=== PATIENT | female | born 1980 | race Caucasian/White ===

== ENCOUNTER 2016-06-22 23:39 | Observation (INO) ==
[2016-06-23] MEDS ORDERED: Ketorolac 30 MG/ML VIAL IVP ONE ×2 (00:10→08:59)
--- NOTE | 2016-06-23 00:14 | Emergency Department Note ---
Disposition Clinical Impression: Cholecystitis, Biliary colic Disposition: Admitted As Inpatient Condition: Good Time of Disposition: 05:05 Abdominal Pain HPI - General Chief Complaint: ED Abdominal Pain Stated Complaint: abdominal pain has gallstones Time Seen by Provider: 06/22/16 23:59 Source: patient Mode of arrival: ambulatory Limitations: no limitations Nursing Notes Reviewed: Yes Vital Signs Reviewed: Yes - History of Present Illness HPI Narrative: 36-year-old female history of COPD presents to the ED with abdominal pain. Patient reports a history of gallbladder issues over the past year. She just recently got out of correction and is currently at the [facility]. She reports pain in the epigastric region mostly in the right upper quadrant that has been ongoing since yesterday. Worse with foods in particular fatty food and chicken. She attempted take Pepcid without much relief. She feels bloated and states are abdomen is larger than usual. Denies any fevers, cough, chest pain, shortness of breath. Denies any urinary complaints, diarrhea, bloody stools. History of tubal ligation denies any other abdominal surgeries. Pain Scale: 9 - Related Data Previous Rx's Medication Instructions Recorded Amoxicillin/Clavulanate [Augmentin] 875 mg PO BIDWM #20 tablet 11/11/15 PredniSONE [Prednisone] 50 mg PO DAILY #7 tablet 11/11/15 Cephalexin [Keflex] 500 mg PO QID #40 capsule 01/07/16 DiphenhydraMINE [Benadryl] 50 mg PO HS #60 capsule 04/05/16 Famotidine [Pepcid] 20 mg PO BID #60 tablet 04/05/16 Ibuprofen [Motrin] 600 mg PO Q6HR PRN #30 tab 04/05/16 Allergies Allergy/AdvReac Type Severity Reaction Status Date / Time No Known Allergies Allergy Verified 06/22/16 23:53 All systems ED: reviewed and negative except as stated. Constitutional: Denies: fever, chills Cardiovascular: Denies: chest pain Respiratory: Denies: cough, dyspnea Gastrointestinal: Reports: abdominal pain. Denies: nausea, vomiting, diarrhea, melena, hematochezia Genitourinary: Denies: urgency, dysuria, frequency Musculoskeletal: Denies: back pain, neck pain Integumentary: Denies: rash, abrasion Abdominal Pain PMH - Past Medical History Medical history: Reports: asthma, COPD [employer]GR[employer] DIRECTOR history: Reports: bilateral tubal ligation Psychiatric history: Reports: anxiety, depression, panic disorder - Social History Smoking status: Current every day smoker Alcohol use: Reports: none Drug use: Reports: none Physical Exam - General Limitations: no limitations General appearance: alert, in no apparent distress, obese - Head Head exam: atraumatic, normocephalic, normal inspection - Eye Eye exam: Present: normal appearance, PERRL, EOMI - ENT ENT exam: normal exam, normal oropharynx, mucous membranes moist - Neck Neck exam: Present: normal inspection, full ROM, trachea midline. Absent: tenderness - Chest Chest inspection: Present: normal inspection, symmetric chest wall rise. Absent : tenderness - Respiratory Respiratory exam: Present: normal lung sounds bilaterally. Absent: respiratory distress, wheezes - Cardiovascular Cardiovascular exam: Present: regular rate, normal rhythm, normal heart sounds. Absent: systolic murmur, diastolic murmur - Abdominal Exam Abdominal exam: Present: soft, tenderness, normal bowel sounds, Howard's sign. Absent: distention, guarding, rebound, rigidity, Rovsing's sign, tenderness at McBur[place]'s Point, ascites, hernia, scar Abdominal tenderness: Present: RUQ, epigastrium, moderate - Extremities Exam Extremities exam: Present: normal inspection, full ROM, normal capillary refill. Absent: tenderness, pedal edema, calf tenderness - Back Exam Back exam: Present: normal inspection, full ROM. Absent: tenderness, CVA tenderness (R), CVA tenderness (L) - Neurological Exam Neurological exam: Present: alert, oriented X3 - Psychiatric Psychiatric exam: Present: normal affect, normal mood - Skin Skin exam: Present: warm, dry, intact, normal color. Absent: rash, cyanosis Course Course Narrative: 36-year-old female presents with right upper quadrant pain. His been ongoing for the past 24 hours. She believes it is worse with meals. History of gallbladder issues in the past. Denies any nausea, vomiting, urinary symptoms. Patients afebrile peers in no acute distress. Lungs are clear auscultation bilaterally. Abdomen is soft but tender in the right upper quadrant and epigastric region. Positive Howard sign. Toradol for pain. We will get CBC, CMP and consider possible ultrasound versus CT scan pending lab results. Urinalysis ordered. - Reevaluation(s) Reevaluation #1: Lipase elevated 99. CT of the abdomen and pelvis was ordered and reveals multiple gallstones and gallbladder wall thickening. Suggestive of possible cholecystitis. Recommend ultrasound. Patient has been NPO since 1700. Bedside ultrasound of gallbladder reveals multiple gallstones with gallbladder wall thickening 3.6 mm. Awaiting for formal ultrasound of gallblader. Pain improved with toradol, however, worsening again. Morphine 4 mg ordered for additional relief. Time: 03:17 Reevaluation #2: Gallbladder ultrasound reveals immobile stone at the gallbladder neck. There is some mucosal thickening but no pericholecystic fluid. Mild intrahepatic biliary ductal dilatiation with slight prominence of CBD. Consult surgeon on- call for symptom management. She is from the [facility] and concern for outpatient follow up. Concerning for possible cholecystitis. Impression is biliary colic and cholecystitis. Morphine for pain control. Zosyn antibiotic ordered. Abdomen/Pelvis CT 06/23/16 00:48 IMPRESSION: 1. Cholelithiasis with gallbladder mucosal thickening and mild intrahepatic biliary ductal dilatation. Pattern may represent chronic cholecystitis. Please correlate with any acute symptoms of cholecystitis. Follow-up ultrasound may be considered if indicated. 2. No other significant findings in the abdomen or pelvis. D/ / Williams Gonsales MD / Williams Gonsales MD Interpreting Provider: Williams Gonsales MD Gallbladder Ultrasound 06/23/16 01:37 IMPRESSION: 1. Ultrasound findings demonstrate an immobile stone at the gallbladder neck. Mild mucosal thickening with no pericholecystic fluid. Pattern may represent uncomplicated cholecystitis and correlation clinically is advised. 2. There is mild intrahepatic biliary ductal dilatation. Slight prominence of the common bile duct. D/ / Williams Gonsales MD / Williams Gonsales MD Interpreting Provider: Williams Gonsales MD Time: 05:04 - Consultations Consultation #1: Spoke with on-call surgeon edis Johnson to admit for acute symptoms of bilary colic and chronic cholecystitis. No further orders at this time. Time: 05:03 Vital Signs Temperature 97.6 F 06/22/16 23:50 Pulse Rate 88 06/22/16 23:50 Respiratory Rate 20 06/22/16 23:50 Blood Pressure 156/108 06/22/16 23:50 O2 Sat by Pulse Oximetry 98 06/22/16 23:50 Temperature 97.6 F 06/22/16 23:50 Pulse Rate 67 06/23/16 04:47 Respiratory Rate 16 06/23/16 04:47 Blood Pressure 117/81 06/23/16 04:47 O2 Sat by Pulse Oximetry 97 06/23/16 04:47 Oxygen Delivery Oxygen Delivery Room Air Abdominal Pain - Medical Records Medical records reviewed: Yes I reviewed the patient's medical records. - Lab Data Lab results reviewed: Yes I reviewed the patient's lab results. Result diagrams: 06/23/16 00:21 06/23/16 00:21 Lab Results 06/23/16 06/23/16 06/23/16 Range/Units 00:01 00:02 00:21 WBC 9.3 (4.3-11.1) K/mcL RBC 4.91 (3.82-4.97) M/mcL Hgb 14.8 (11.5-15.4) g/dL Hct 44.2 (35.3-44.9) % MCV 90.0 (83.0-100.0) fL MCH 30.1 (28.0-33.3) pg MCHC 33.5 (31.6-35.5) g/dL RDW 12.1 (11.5-14.5) % Plt Count 298 (140-400) K/mcL MPV 8.6 L (9.4-12.4) fL Immature Gran % 0.2 (0-4) % Seg Neutrophils % 44.6 % Lymphocytes % 47.8 % Monocytes % 5.9 % Eosinophils % 1.3 % Basophils % 0.2 % Neutrophils # 4.1 (1.6-8.9) K/mcL Lymphocytes # 4.4 (0.6-4.6) K/mcL Monocytes # 0.6 (0.0-1.3) K/mcL Eosinophils # 0.1 (0.0-0.6) K/mcL Basophils # 0.0 (0.0-0.2) K/mcL Sodium (136-145) mEq/L Potassium (3.5-4.5) mEq/L Chloride (98-109) mEq/L Carbon Dioxide (19-29) mEq/L BUN (7-20) mg/dL Creatinine (0.57-1.11) mg/dL Est GFR ( Amer) (> 60) Est GFR (Non-Af Amer) (> 60) BUN/Creatinine Ratio (6-26) Glucose (70-99) mg/dL Calculated Osmolality (280-300) Calcium (8.6-10.8) mg/dL Total Bilirubin (0.2-1.2) mg/dL Direct Bilirubin (0.0-0.5) mg/dL Indirect Bilirubin (0.0-1.2) mg/dL AST (5-34) Units/L ALT (0-55) Units/L Alkaline Phosphatase (38-126) Units/L Serum Total Protein (6.0-8.3) g/dL Albumin (3.5-5.0) g/dL Globulin (2.4-3.5) g/dL Albumin/Globulin Ratio (1.1-2.2) Lipase (8-78) Units/L Urine Color Yellow (Yellow) Urine Clarity Clear (Clear) Urine pH 6.5 (5.0-8.0) pH Units Ur Specific [place] 1.026 H (1.010-1.025) Urine Protein Negative (Neg-Trace) mg/dL Urine Glucose (UA) Normal (Normal) mg/dL Urine Ketones Negative (Negative) mg/dL Urine Blood Negative (Negative) Urine Nitrite Negative (Negative) Urine Bilirubin Negative (Negative) Urine Urobilinogen Normal (Normal) mg/dL Ur Leukocyte Esterase Small H (Negative) Urine Microscopic RBC 0-3 (0-3) per hpf Urine Microscopic WBC 0-3 (0-3) per hpf Ur Squamous Epith Cells Many H (None-Few) per lpf Urine Bacteria Few (None-Few) per hpf Hyaline Casts None Seen (None-Few) per lpf Ur Culture Indicated? YES A (NO) Urine Test Negative (Negative) 06/23/16 Range/Units 00:21 WBC (4.3-11.1) K/mcL RBC (3.82-4.97) M/mcL Hgb (11.5-15.4) g/dL Hct (35.3-44.9) % MCV (83.0-100.0) fL MCH (28.0-33.3) pg MCHC (31.6-35.5) g/dL RDW (11.5-14.5) % Plt Count (140-400) K/mcL MPV (9.4-12.4) fL Immature Gran % (0-4) % Seg Neutrophils % % Lymphocytes % % Monocytes % % Eosinophils % % Basophils % % Neutrophils # (1.6-8.9) K/mcL Lymphocytes # (0.6-4.6) K/mcL Monocytes # (0.0-1.3) K/mcL Eosinophils # (0.0-0.6) K/mcL Basophils # (0.0-0.2) K/mcL Sodium 138 (136-145) mEq/L Potassium 3.7 (3.5-4.5) mEq/L Chloride 103 (98-109) mEq/L Carbon Dioxide 26 (19-29) mEq/L BUN 10 (7-20) mg/dL Creatinine 0.78 (0.57-1.11) mg/dL Est GFR ( Amer) > 60 (> 60) Est GFR (Non-Af Amer) > 60 (> 60) BUN/Creatinine Ratio 13 (6-26) Glucose 96 (70-99) mg/dL Calculated Osmolality 285 (280-300) Calcium 10.6 (8.6-10.8) mg/dL Total Bilirubin 0.3 (0.2-1.2) mg/dL Direct Bilirubin 0.2 (0.0-0.5) mg/dL Indirect Bilirubin 0.1 (0.0-1.2) mg/dL AST 62 H (5-34) Units/L ALT 50 (0-55) Units/L Alkaline Phosphatase 70 (38-126) Units/L Serum Total Protein 9.0 H (6.0-8.3) g/dL Albumin 4.1 (3.5-5.0) g/dL Globulin 4.9 H (2.4-3.5) g/dL Albumin/Globulin Ratio 0.8 L (1.1-2.2) Lipase 99 H (8-78) Units/L Urine Color (Yellow) Urine Clarity (Clear) Urine pH (5.0-8.0) pH Units Ur Specific [place] (1.010-1.025) Urine Protein (Neg-Trace) mg/dL Urine Glucose (UA) (Normal) mg/dL Urine Ketones (Negative) mg/dL Urine Blood (Negative) Urine Nitrite (Negative) Urine Bilirubin (Negative) Urine Urobilinogen (Normal) mg/dL Ur Leukocyte Esterase (Negative) Urine Microscopic RBC (0-3) per hpf Urine Microscopic WBC (0-3) per hpf Ur Squamous Epith Cells (None-Few) per lpf Urine Bacteria (None-Few) per hpf Hyaline Casts (None-Few) per lpf Ur Culture Indicated? (NO) Urine Test (Negative) - Radiology Data Radiology results reviewed: Yes I reviewed the patient's radiology results. Abdomen/Pelvis CT 06/23/16 00:48 IMPRESSION: 1. Cholelithiasis with gallbladder mucosal thickening and mild intrahepatic biliary ductal dilatation. Pattern may represent chronic cholecystitis. Please correlate with any acute symptoms of cholecystitis. Follow-up ultrasound may be considered if indicated. 2. No other significant findings in the abdomen or pelvis. D/ / Williams Gonsales MD / Williams Gonsales MD Interpreting Provider: Williams Gonsales MD Abdomen/Pelvis CT 06/23/16 00:48 IMPRESSION: 1. Cholelithiasis with gallbladder mucosal thickening and mild intrahepatic biliary ductal dilatation. Pattern may represent chronic cholecystitis. Please correlate with any acute symptoms of cholecystitis. Follow-up ultrasound may be considered if indicated. 2. No other significant findings in the abdomen or pelvis. D/ / Williams Gonsales MD / Williams Gonsales MD Interpreting Provider: Williams Gonsales MD Gallbladder Ultrasound 06/23/16 01:37 IMPRESSION: 1. Ultrasound findings demonstrate an immobile stone at the gallbladder neck. Mild mucosal thickening with no pericholecystic fluid. Pattern may represent uncomplicated cholecystitis and correlation clinically is advised. 2. There is mild intrahepatic biliary ductal dilatation. Slight prominence of the common bile duct. D/ / Williams Gonsales MD / Williams Gonsales MD Interpreting Provider: Williams Gonsales MD Attestation Statement - Attestation Attestation: I examined this patient and my medical decision-making was reviewed with the LOAD BLOCKER/PA/Advanced Practice Nurse/Resident Physician. I agree with the documented findings, disposition and treatment plan as described except to the extent set forth below. Patient emergency department with upper abdominal pain. Onset yesterday. History of gallstones. States she ate a sandwich. On exam she is uncomfortable. Right upper quadrant tenderness no guarding. Plan. Labs. Pain control and re-eval. CT shows thickening of the gallbladder. Patient having increasing right upper quadrant pain. Ultrasound findings likely chronic cholecystitis. She does have acute findings. Admitted to surgery.
[2016-06-23 00:21] LABS: Bilirubin,Urine Negative (Negative); Blood,Urine Negative (Negative); Color,Urine Yellow (Yellow); Glucose,Urine (UA) Normal (Normal); Ketones,Urine Negative (Negative); Leukocyte Esterase,Urine Small (Negative); Nitrite,Urine Negative (Negative); PH,Urine 6.5 pH Units (5.0-8.0); Protein,Urine Negative (Neg-Trace); Specific Gravity,Urine 1.026 (1.010-1.025); Urobilinogen,Urine Normal (Normal)
[2016-06-23 00:23] LABS: Bacteria,Urine Few per hpf (None-Few); Hyaline Casts,Urine None Seen per lpf (None-Few); RBC,Urine 0-3 per hpf (0-3); Squamous Epithelial Cell,Urine Many per lpf (None-Few); WBC,Urine 0-3 per hpf (0-3)
[2016-06-23 00:25] LABS: Clarity,Urine Clear (Clear)
[2016-06-23 00:31] LABS: Basophils % 0.2 %; Eosinophils # 0.1 K/mcL (0.0-0.6); Eosinophils % 1.3 %; Hematocrit 44.2 % (35.3-44.9); Hemoglobin 14.8 g/dL (11.5-15.4); Immature Granulocytes % 0.2 % (0-4); Lymphocytes # 4.4 K/mcL (0.6-4.6); Lymphocytes % 47.8 %; Mean Corpuscular HGB Conc 33.5 g/dL (31.6-35.5); Mean Corpuscular Hemoglobin 30.1 pg (28.0-33.3); Mean Platelet Volume 8.6 fL (9.4-12.4); Monocytes # 0.6 K/mcL (0.0-1.3); Monocytes % 5.9 %; Neutrophils # 4.1 K/mcL (1.6-8.9); Platelet Count 298 K/mcL (140-400); Red Blood Count 4.91 M/mcL (3.82-4.97); Red Cell Distribution Width 12.1 % (11.5-14.5); Segmented Neutrophils % 44.6 %
[2016-06-23 00:45] LABS: Alanine Aminotransferase 50 Units/L (0-55); Albumin 4.1 g/dL (3.5-5.0); Albumin/Globulin Ratio 0.8 (1.1-2.2); Alkaline Phosphatase 70 Units/L (38-126); Aspartate Amino Transferase 62 Units/L (5-34); BUN/Creatinine Ratio 13 (6-26); Bilirubin,Direct 0.2 mg/dL (0.0-0.5); Bilirubin,Indirect 0.1 mg/dL (0.0-1.2); Bilirubin,Total 0.3 mg/dL (0.2-1.2); Blood Urea Nitrogen 10 mg/dL (7-20); Calcium 10.6 mg/dL (8.6-10.8); Carbon Dioxide 26 mEq/L (19-29); Chloride 103 mEq/L (98-109); Globulin 4.9 g/dL (2.4-3.5); Glucose 96 mg/dL (70-99); Lipase 99 Units/L (8-78); Osmolality,Calculated 285 (280-300); Potassium 3.7 mEq/L (3.5-4.5); Sodium 138 mEq/L (136-145); eGFR For African Americans > 60 (> 60); eGFR For Non-African Americans > 60 (> 60)
[2016-06-23] MEDS ORDERED: 0.9 % Sodium Chloride 1,000 ML IV ONE (00:48)
[2016-06-23] MEDS ORDERED: *HR* Morphine 2 MG/ML SYRINGE IV ONE ×2 (03:17→05:05)
[2016-06-23] MEDS ORDERED: Ondansetron 4 MG/2 ML VIAL IV ONE (05:05)
[2016-06-23] MEDS ORDERED: Piperacillin/Tazobactam 3.375 GM in D5% in Water (Mini-Bag+) 100 ML IVPB ONE (05:20)
[2016-06-23] MEDS ORDERED: Ringers Solution, Lactated 1,000 ML IVC SCH ×3 (08:15→10:15)
--- NOTE | 2016-06-23 08:27 | General Surg History&Physical ---
Date of Encounter: 06/23/16 Time of Encounter: 07:45 History of Present Illness Chief complaint: Acute epigastric and right upper quadrant abdominal pain, cholelithiasis HPI: Ms. Lopez is a 36 year old female referred to surgical services after presenting to the emergency department with approximately a 36 hour history of epigastric and right upper quadrant abdominal pain. The patient describes sudden onset of pain and bloating after the evening meal yesterday. The patient admits that these symptoms have been occurring intermittently, approximately once monthly, for the past year but they have increased in severity and frequency. The patient denies associated fevers, chills, chest pain but with the acute onset of pain and bloating she did describe some difficulty breathing. Labs are notable for normal white count, 9.3, hemoglobin 14.8, hematocrit 44.2. Electrolytes, BUN, and creatinine were within normal limits. CT demonstrated clear lung bases, at least 2 large stones within the gallbladder fundus with a mild degree of gallbladder mucosal thickening and mild intra-hepatic biliary duct dilatation. The common bile duct was described as normal in caliber. The rest of the abd and pelvis were unremarkable. An ultrasound of the gallbladder demonstrated a distended gallbladder with 2 stones within the gallbladder fundus and one described as immobile in the neck of the gallbladder. Gallbladder mucosal thickening approximately 4 mm in diameter is described. No pericholecystic fluid was identified. The common bile duct was slightly prominent 5 mm but this is considered within normal limits. The emergency department physician referred the patient to surgical service due to the radiologic findigns and persisting pain despite administration of meds including morphine. Past medical history: Notable for history of heroin and methadone abuse; the patient was recently released from senior living and is currently a resident of a [facility]. The patient indicates that she has been drug free for over a year. Patient denies any medical history but medical records indicate a previous history of asthma/COPD, anxiety, depression, and panic disorder. Surgical history: Tubal ligation; ORIF right elbow Medications: No routine meds; the patient tried [id number] Pepcid to control her symptoms without success. Allergies: No known drug allergies Social history: G4, P2, Ab2; admits to half a pack of cigarettes daily for the last 10 years; history illicit drug use as noted above. Physical examination: At the time of my examination, the patient was in no acute distress. Skin is warm, without evidence of jaundice. Sclerae are anicteric The patient was afebrile, 98.1; pulse 77, respirations 18, blood pressure 133 /88. SPO2 on room air 96% Lungs: Clear without audible wheezes or rales Cardiac: Regular rate, no appreciable murmurs Abdomen: Obese, soft with minimal tenderness in the right upper quadrant. No discernible intra-abdominal masses. No rebound. Active bowel sounds Extremities: No obvious clubbing cyanosis or edema Laboratories noted CT and ultrasound were personally reviewed Impression: 36-year-old female referred to surgical services for further evaluation and possible treatment recurrent severe epigastric and RUQ abdominal pain. Radiologic findings include cholelithiasis with mild mucosal thickening and intrahepatic ductal dilatation. The patient describes recurrent symptoms dating back at least a year but characterizes the symptoms as becoming more frequent and severe. Treatment options include dietary restriction fried and fatty foods but it is likely the patient will continue to have intermittent recurrent symptoms. The other option is surgery. The patient is a reasonable candidate for laparoscopic cholecystectomy but understands understands an open cholecystectomy may become necessary. Risks of surgery include: Hemorrhage, infection, intra-abdominal abscess, bile leak, injury to adjacent ducts, vessels, organs, or bowel. Potential postcholecystectomy diarrhea was also discussed. The patient expressed understanding and voiced a desire to proceed with surgery. Consent for surgery has been obtained. Past Med Surg Social Fam HX - Past Medical History Medical history: asthma, COPD Psychiatric history: anxiety, depression, panic disorder - Past Surgical History Surgical History: orthopedic, other - Social History Smoking Status: Current every day smoker Smokeless Tobacco Status: No Alcohol use: none Drug use: none - Family History Father Living Status: Still Living Hx Family Cardiac Disorders: Yes Hx Family Respiratory Disorders: No Hx Family Cancer: No Hx Family GI Disorders: No Hx Family Genitourinary Disorders: No Hx Family Endocrine Disorder: No Hx Family Musculoskeletal Disorders: No Hx Family Neuromuscular Disorders: No Hx Family Neurologic Disorders: No Hx Family HEENT Disorders: No Hx Family Autoimmune Disorders: No Hx Family Reproductive Disorders: No Hx Family Psychosocial Disorders: No Hx Family Medical Disorders: No Mother Living Status: Age at : 43 Cause of : CHF Hx Family Cardiac Disorders: Yes Hx Family Respiratory Disorders: No Hx Family Cancer: No Hx Family GI Disorders: No Hx Family Genitourinary Disorders: No Hx Family Endocrine Disorder: No Hx Family Musculoskeletal Disorders: No Hx Family Neuromuscular Disorders: No Hx Family Neurologic Disorders: No Hx Family HEENT Disorders: No Hx Family Autoimmune Disorders: No Hx Family Reproductive Disorders: No Hx Family Psychosocial Disorders: No Hx Family Medical Disorders: No Medications and Allergies No Known Home Drugs 06/23/16 [History] Allergies No Known Allergies Allergy (Verified 06/22/16 23:53) Review of Systems All systems PM: A 10-system review of systems was performed and is negative for pertinent findings except as documented above in the HPI. General Surgery Exam Initial Vital Signs Temp Pulse Resp BP Pulse Ox 97.6 F 88 20 156/108 98 06/22/16 23:50 06/22/16 23:50 06/22/16 23:50 06/22/16 23:50 06/22/16 23:50 Results - Labs 06/23/16 00:21 03 00:21 Abnormal lab results MPV 8.6 fL (9.4-12.4) L 06/23/16 00:21 AST 62 Units/L (5-34) H 06/23/16 00:21 Serum Total Protein 9.0 g/dL (6.0-8.3) H 06/23/16 00:21 Globulin 4.9 g/dL (2.4-3.5) H 06/23/16 00:21 Albumin/Globulin Ratio 0.8 (1.1-2.2) L 06/23/16 00:21 Lipase 99 Units/L (8-78) H 06/23/16 00:21 Ur Specific [place] 1.026 (1.010-1.025) H 06/23/16 00:01 Ur Leukocyte Esterase Small (Negative) H 06/23/16 00:01 Ur Squamous Epith Cells Many per lpf (None-Few) H 06/23/16 00:01 Ur Culture Indicated? YES (NO) A 06/23/16 00:01 All other labs normal.
[2016-06-23] MEDS ORDERED: Albuterol 2.5 MG/3 ML NEBULIZER ONE (08:40)
[2016-06-23] MEDS ORDERED: Albuterol 2.5 MG/3 ML NEBULIZER IH ONE (08:43)
[2016-06-23] MEDS ORDERED: *HR* Rocuronium Bromide 50 MG/5 ML VIAL IVC ONE (08:59)
[2016-06-23] MEDS ORDERED: *HR* Propofol 200 MG/20 ML VIAL IVP ONE (08:59)
[2016-06-23] MEDS ORDERED: Ondansetron 4 MG/2 ML VIAL IVP ONE (08:59)
[2016-06-23] MEDS ORDERED: Lidocaine -MPF 2% 5 ML VIAL INFILT ONE (08:59)
[2016-06-23] MEDS ORDERED: Bupivacaine/EPI 1:200k 0.25%PF 30 ML VIAL ONE (09:11)
[2016-06-23] MEDS ORDERED: *HR* FentaNYL (PF) 250 MCG/5 ML VIAL ONE (09:20)
--- NOTE | 2016-06-23 09:45 | Anesthesia Evaluation PreOp ---
Date of Encounter: 06/23/16 Time of Encounter: 09:39 - Past History Planned Operation: Lap cholecystectomy Cardiac History: Denies any Significant Hx Pulmonary History: Smoker, COPD WORKFORCE PLANNER History: Denies Any Significant HX Other Medical History: Denies Any Significant HX Anesthesia History: No Prior Anesthetic Complications, Past Anesthesia (csection , elbow sx) Alcohol Use: none Drug use: none Medications and Allergies No Known Home Drugs 06/23/16 [History] Allergies No Known Allergies Allergy (Verified 06/22/16 23:53) - Meds/Allergy Pre-op Review Medications Reviewed: Yes Allergies Reviewed: Yes Beta Blockers on Current Med List: No Anesthesia Results - Labs 06/23/16 00:21 06/23/16 00:21 Anesthesia Exam Vital Signs/O2 Sat, Most Current Temp Pulse Resp BP Pulse Ox 98.1 F 77 18 133/88 96 06/23/16 06:00 06/23/16 06:00 06/23/16 06:00 06/23/16 06:00 06/23/16 06:00 Height: 1.6m Weight: 109kg NPO (# of Hours): >8 Pain Scale: 0 Pain Scale Used: Numeric (1 - 10) - HEENT Pupil (Motor): Pupils equal, EOMI Mallampati: II Teeth: Poor dentition Oral Opening: Greater than 3 - WORKFORCE PLANNER LOC: Oriented WORKFORCE [employer]NER Motor: Normal RUE, Normal LUE, Normal RLE, Normal LLE, Normal Face [employer]FORCE PL[employer]NER Sensory: Normal: RUE, LUE, RLE, LLE, Face - Cardiac Rhythm: Regular Murmur: None - Pulmonary Breath Sounds: bilateral Clear Respiratory Effort: Symmetrical Anesthesia Assess/Plan ASA Score: 3 (COPD, smoker) Modified Aranza Scale for Level of Consciousness: Cooperative, oriented, and tranquil Anesthetic Plan: General Monitoring Plan: Standard Monitors Recovery Plan: PACU
[2016-06-23] MEDS ORDERED: *HR* HYDROmorphone (PF) 1 MG/ML SYRINGE IVP PRN (10:14)
[2016-06-23] MEDS ORDERED: ceFAZolin 2,000 MG in D5% in Water 100 ML IVPB ONE (10:16)
[2016-06-23] MEDS ORDERED: Ringers Solution, Lactated 500 ML IVC ONE ×2 (11:43→11:44)
--- NOTE | 2016-06-23 11:43 | Operative Note ---
Date of procedure: 06/23/16 Pre-op diagnosis: cholecystitis, cholelithiasis, biliary colic Post-op diagnosis: same Procedure: laparoscopic cholecystectomy, intra operative cholangiogram Complications: none apparent Anesthesia: GETA Local Anesthetics: 0.25% Sensorcaine HCL with Epinephrine 1:200,000 SubQ (cc) ( 30mL) Surgeon: Daniel Shin Estimated blood loss (cc): 15 IV fluids (cc): 1,000 Specimen: gallbladder Condition: stable Disposition: PACU Procedure in Detail: The patient was brought to the operating room where she was placed supine upon the operating room table. The patient was appropriately identified as to person and procedure. The accuracy of this information was confirmed by the procedure team. The patient was intubated and anesthetized under the supervision of Dr. Brie Davis. The abdomen was prepped and draped in usual sterile fashion. Several milliliters of 0.25% bupivacaine with 1-200,000 units epinephrine was infiltrated into the infraumbilical skin. A small transverse incision was made, dissection was carried to the fascia. Additional bupivacaine with epinephrine was infiltrated into the fascia. The fascia was then grasped, elevated and incised. An 11 mm Xcel port was established through this incision. The rigid laparoscope was placed within the obturator to visualize passage through the layers of the anterior abdominal wall. Once the abdominal cavity was accessed, the obturator was replaced by the rigid laparoscope. The abdomen was insufflated with gaseous carbon dioxide. There was no obvious visible injury from establishing the port. Under direct visualization 3 additional ports were placed along the right costal margin in the subxiphoid, midclavicular, and anterior axillary line. Each site was infiltrated with the bupivacaine/epinephrine solution. The gallbladder was grasped and retracted cephalad. The hepatoduodenal ligament was dissected allowing the cystic artery to be skeletonized and then clipped twice proximally , once distally. To facilitate exposure to the cystic duct the artery was divided. The cystic duct was skeletonized and clipped near the infundibulum of the gallbladder. Via a separate separate percutaneous insertion site a Taut cholangiogram catheter was introduced. The cystic duct was incised, the cholangiogram catheter inserted. Using C-arm fluoroscopy a cholangiogram was completed. This demonstrated no filling defects in the hepatobiliary tree. The common duct appeared to be of normal caliber, with free flow contrast into the duodenum. The proximal hepatobiliary tree also appeared normal. [facility] provided an intraoperative reading indicating no pathology was identified. The cholangiogram catheter was removed, the cystic duct was clipped and divided. The gallbladder was dissected from the liver bed using the Ethicon harmonic poonam. Once from the liver bed, the gallbladder was placed in an endoscopic pouch and removed via the infraumbilical opening. It was necessary to enlarge the fascial opening to allow extraction of the gallbladder which contained a rather large stone . The specimen was recovered and sent to pathology. The liver bed was inspected for adequate hemostasis. This was deemed adequate. The pneumoperitoneum was evacuated, the instrumentation removed. The fascia of the infraumbilical was closed with interrupted [id number] Vicryl using S retractors. The port sites were closed with subcuticular 4-0 Vicryl. The incisions were sealed with Dermabond dermal adhesive. The patient was taken to PACU in stable condition. Needle, sponge, and instrument counts were correct at close of the case. Total volume of 0.25% bupivacaine with 1-200,000 units epinephrine, 30 mL.
--- NOTE | 2016-06-23 12:02 | Anesthesia Evaluation Post Op ---
Date of Encounter: 06/23/16 Time of Encounter: 12:01 - Vital Signs Vital Signs: Vital Signs/O2 Sat, Most Current Temp Pulse Resp BP Pulse Ox 97.7 F 67 16 148/92 100 06/23/16 11:37 06/23/16 11:57 06/23/16 11:57 06/23/16 11:57 06/23/16 11:57 - Lungs Lungs: Clear Ascult./Percussion - Airway Airway: Non-obstructed - Cardiovascular Regular Rate - Mental Status Mental Status: Asleep with brisk response to light stimulation - Pain Pain Scale: 0 Pain Scale used: Numeric (1 - 10) - Nausea Vomiting Nausea Vomiting: Not Present - Hydration Hydration: NPO - Discharge PostOp Status: Transfer Patient to floor Attestation: I have assessed this patient and find they meet discharge criteria.
[2016-06-23] MEDS ORDERED: Acetaminophen 325 MG TABLET PO PRN (12:22)
[2016-06-23] MEDS ORDERED: Ondansetron 4 MG/2 ML VIAL IVP PRN (12:22)
[2016-06-23] MEDS: *HR* OxyCODONE/APAP 5/325 TABLET PO PRN ×2 (12:54→19:26)
[2016-06-23] MEDS: Albuterol 2.5 MG/3 ML NEBULIZER IH SCH ×3 (16:01→22:46)
[2016-06-23] MEDS: *HR* HYDROmorphone (PF) 1 MG/ML SYRINGE IVP PRN ×2 (18:08→21:56)
[2016-06-24] MEDS: Ringers Solution, Lactated 1,000 ML IVC SCH ×2 (02:36→02:39)
[2016-06-24] MEDS: *HR* OxyCODONE/APAP 5/325 TABLET PO PRN ×3 (02:39→14:39)
[2016-06-24] MEDS: Albuterol 2.5 MG/3 ML NEBULIZER IH SCH ×2 (03:43→10:36)
[2016-06-24] MEDS: *HR* HYDROmorphone (PF) 1 MG/ML SYRINGE IVP PRN (06:41)
--- NOTE | 2016-06-24 13:44 | General Surgery Progress Note ---
Date of Encounter: 06/24/16 Time of Encounter: 13:39 Subjective Patient reports: feels better Narrative: General Surgery progress note / discharge Postoperative day 1: Pre operative symptoms have diminished; only complaint is infraumbilical port site tenderness. Afebrile, vital signs stable, pulse 77, respirations 16, blood pressure 96/57 ; SPO2 on room air 97% Lungs: Clear Abdomen: Obese, soft, minimal tenderness infraumbilical port site. Port sites are all clean, dry and healing well Tolerating regular diet Impression: Postoperative day 1, status post laparoscopic cholecystectomy with intraoperative cholangiogram presenting to [facility] ED With acute epigastric and right upper quadrant abdominal pain. Exam was consistent with acute cholecystitis, cholelithiasis and biliary colic. Surgery completed laparoscopically without incident. Patient's recovery sufficient for discharge home today. Recommendations Regular diet She may shower, wash incisions with soap and water Activity as tolerated; lifting limited less than 20 pounds Tylenol, ibuprofen, Motrin, Advil, etc. as needed for pain; she may take 600 mg ibuprofen 4 times daily if needed for pain Follow-up my office, 07/01/16 Objective Vital Signs - Last 8 Hours Temp Pulse Resp BP Pulse Ox 06/24/16 11:10 97.8 F 77 16 96/57 97 06/24/16 10:38 18 98 06/24/16 06:29 98.1 F 66 18 120/71 96 Intake and Output 06/23/16 06/24/16 06/24/16 23:59 07:59 15:59 Intake Total 375 / 375 238 / 238 Output Total 600 / 600 Balance -225 / -225 238 / 238 Intake: Oral 375 / 375 238 / 238 Output: Urine 600 / 600 Other: Meal Breakfast Percent of Meal Consumed 100% # Voids 2 1 - Labs 06/23/16 00:21 06/23/16 00:21 Consult Discharge Plan - Plan Referrals: NO,PCP [Primary Care Provider] -
--- NOTE | 2016-06-24 13:46 | Discharge Summary ---
Outpatient Proc Discharge Plan - Plan Additional Instructions: Regular diet Patient may shower, wash incisions with soap and water Activity as tolerated; lifting limited to less than 20 pounds Tylenol, Motrin, Advil, Aleve as needed for pain. She may take ibuprofen 600 mg up to 4 times daily as needed for pain Follow-up my office, 07/01/16 Home Medications: Acetaminophen [Tylenol] 650 mg PO Q6HR PRN #0 tablet 06/24/16 [Rx]
[2016-06-24 14:07] VITALS: BP 120/66
== END 2016-06-24 14:47 | disposition home or self-care (01) ==
LOC: EMEROO 23:39 → 3NENU 23:39
PROVIDERS: ADMIT Surgery; ATTEND Surgery